=== PATIENT | male | born 1955 | race American Indian/Alaskan Native ===

== ENCOUNTER 2018-07-09 01:29 | Emergency (ER) | payer OTHER ==
--- NOTE | 2018-07-09 07:40 | Emergency Department Report ---
ED Recheck HPI - General Chief Complaint: High BP Stated Complaint: HIGH BP Time Seen by Provider: 07/09/18 07:15 Source: patient Mode of arrival: Ambulatory Limitations: No Limitations - History of Present Illness Initial Comments: This is a 62-year-old male nontoxic, well nourished in appearance, no acute signs of distress presents to the ED for medication refill for HTN. Patient stated he took his blood pressure and it was elevated at home. Patient stated that he does not remember his medication and he has been taking. Patient stated that he has not been taking his medications for 2 years. Patient denies any chest pain, headache, stiff neck, nausea, vomiting, numbness, tingling, bowel pain. Patient denies any symptoms. Denies any allergies significant past medical history besides hypertension. MD Complaint: medication refill request Returns Today for: request for prescription Symptoms Since Prior Visit: no new symptoms Associated Symptoms: none. denies: fever, chills, chest pain, shortness of breath, rash, malaise, nasuea, abdominal pain - Related Data Previous Rx's Medication Instructions Recorded Last Taken Type amLODIPine [Norvasc] 10 mg PO DAILY #30 tab 07/09/18 Unknown Rx Allergies Allergy/AdvReac Type Severity Reaction Status Date / Time No Known Allergies Allergy Unverified 07/09/18 01:35 ED Review of Systems ROS: Stated complaint: HIGH BP Other details as noted in HPI Constitutional: denies: chills, fever Eyes: denies: eye pain, eye discharge, vision change ENT: denies: ear pain, throat pain Respiratory: denies: cough, shortness of breath, wheezing Cardiovascular: denies: chest pain, palpitations Endocrine: no symptoms reported Gastrointestinal: denies: abdominal pain, nausea, diarrhea Genitourinary: denies: urgency, dysuria Musculoskeletal: denies: back pain, joint swelling, arthralgia Skin: denies: rash, lesions Neurological: denies: headache, weakness, paresthesias Psychiatric: denies: anxiety, depression Hematological/Lymphatic: denies: easy bleeding, easy bruising ED Past Medical Hx - Past Medical History Previous Medical History?: Yes Hx Hypertension: Yes (noncompliant x2 yrs) - Surgical History Past Surgical History?: No - Social History Smoking Status: Never Smoker Substance Use Type: None - Medications Home Medications: Home Medications Medication Instructions Recorded Confirmed Last Taken Type amLODIPine [Norvasc] 10 mg PO DAILY #30 tab 07/09/18 Unknown Rx ED Physical Exam - General Limitations: No Limitations General appearance: alert, in no apparent distress - Head Head exam: Present: atraumatic, normocephalic - Neck Neck exam: Present: normal inspection, full ROM - Respiratory Respiratory exam: Present: normal lung sounds bilaterally. Absent: respiratory distress, wheezes, rales, rhonchi, stridor, chest wall tenderness, accessory muscle use, decreased breath sounds, prolonged expiratory - Cardiovascular Cardiovascular Exam: Present: regular rate, normal rhythm, normal heart sounds. Absent: systolic murmur, diastolic murmur, rubs, gallop - Extremities Exam Extremities exam: Present: normal inspection, full ROM - Back Exam Back exam: Present: normal inspection, full ROM - Neurological Exam Neurological exam: Present: alert, oriented X3 - Psychiatric Psychiatric exam: Present: normal affect, normal mood - Skin Skin exam: Present: warm, dry, intact, normal color. Absent: rash ED Course Vital Signs 07/09/18 01:35 Temperature 97.8 F Pulse Rate 100 H Respiratory 18 Rate Blood Pressure 179/84 O2 Sat by Pulse 100 Oximetry - Reevaluation(s) Reevaluation #1: 07/09/18 07:41 Patient is speaking in full sentences with no signs of distress noted. ED Recheck MDM - Medical Decision Making This is a 62-year-old male that presents with medication refill. Patient is stable and was examined by me. Patient is currently asymptomatic. I will treat patient with Norvasc at discharge. I did educate patient to keep a daily diary of blood pressure in the presents of primary care doctor also educated patient on a low-sodium diet as well as increase exercise. Patient was referred to Follow-up with a primary care doctor in 3-5 days or if symptoms worsen and continue return to emergency room as soon as possible. At time of discharge, the patient does not seem toxic or ill in appearance. No acute signs of distress noted. Patient agrees to discharge treatment plan of care. No further questions noted by the patient. Critical care attestation.: If time is entered above; I have spent that time in minutes in the direct care of this critically ill patient, excluding procedure time. ED Disposition Clinical Impression: Hypertension Qualifiers: Hypertension type: unspecified Qualified Code(s): I10 - Essential (primary) hypertension Disposition: DC-01 TO HOME OR SELFCARE Is pt being admited?: No Does the pt Need Aspirin: No Condition: Stable Instructions: Hypertension (ED) Additional Instructions: Follow-up with a primary care doctor in 3-5 days or if symptoms worsen and continue return to emergency room as soon as possible. Keep a daily diary of your blood pressure and presented to primary care doctor. Prescriptions: amLODIPine [Norvasc] 10 mg PO DAILY #30 tab Referrals: JOHNSON ADAMSMILLCREEK MD VALERIE [Primary Care Provider] - 3-5 Days PRIMARY CAREMD [Referring] - 3-5 Days DAYTON RAI MD [Staff Physician] - 3-5 Days [facility] [Outside] - 3-5 Days Forms: Work/School Release Form(ED)
[2018-07-09 07:54] VITALS: BP 204/96
== END 2018-07-09 07:52 | disposition home or self-care (01) ==
LOC: ED 01:29
DX: I10 Essential (primary) hypertension (principal); Z76.0 Encounter for issue of repeat prescription

== ENCOUNTER 2019-08-12 16:35 | Emergency (ER) | payer MEDICARE, OTHER ==
[2019-08-12 16:42] VITALS: BP 204/111
[2019-08-12 17:40] LABS: Hematocrit 46.7 % (35.5-45.6); Hemoglobin 15.5 gm/dl (11.8-15.2); Mean Corpuscular HGB Conc 33 % (32-34); Mean Corpuscular Volume 93 fl (84-94); Platelet Count 227 K/mm3 (140-440); Red Blood Count 5.05 M/mm3 (3.65-5.03); Red Cell Distribution Width 15.8 % (13.2-15.2)
[2019-08-12 18:03] LABS: Alanine Aminotransferase 95 units/L (7-56); BUN/Creatinine Ratio 13; Blood Urea Nitrogen 9 mg/dL (9-20); Calcium 9.2 mg/dL (8.4-10.2); Hemolysis Index 7
--- NOTE | 2019-08-12 18:06 | XRay Report ---
LEFT RIBS 3 VIEWS INDICATION / CLINICAL INFORMATION: Left rib pain after fall. COMPARISON: None available. FINDINGS: RIBS: No acute, displaced fracture or other acute abnormality. LUNGS: No acute findings. No pneumothorax. Signer Name: Bayron Gale MD Signed: 08/12/2019 6:02 PM Workstation Name: [id number]
--- NOTE | 2019-08-12 18:20 | Emergency Department Report ---
ED General Adult HPI - General Chief complaint: Fall Stated complaint: FALL INJURY/PAIN Time Seen by Provider: 08/12/19 17:44 Source: patient Mode of arrival: Ambulatory Limitations: No Limitations - History of Present Illness Initial comments: This is a 63-year-old male with a history of hypertension controlled with medication who presents the ED today complaining of left-sided lower rib pain x2 days. Patient states 2 days ago he was playing with his girlfriend when he accidentally f tripped and hit the side of his ribs on the heater. Patient sta nury he had pain since then. Patient denies chest pain, difficulty breathing. - Related Data Previous Rx's Medication Instructions Recorded Last Taken Type Naproxen [Naprosyn] 500 mg PO BID #30 tablet 08/12/19 Unknown Rx amLODIPine 10 mg PO DAILY #40 tab 08/12/19 Unknown Rx Allergies Allergy/AdvReac Type Severity Reaction Status Date / Time No Known Allergies Allergy Verified 08/12/19 16:37 ED Review of Systems ROS: Stated complaint: FALL INJURY/PAIN Other details as noted in HPI Comment: All other systems reviewed and negative ED Past Medical Hx - Past Medical History Hx Hypertension: Yes (noncompliant x2 yrs) - Social History Smoking Status: Never Smoker Substance Use Type: Alcohol - Medications Home Medications: Home Medications Medication Instructions Recorded Confirmed Last Taken Type Naproxen [Naprosyn] 500 mg PO BID #30 tablet 08/12/19 Unknown Rx amLODIPine 10 mg PO DAILY #40 tab 08/12/19 Unknown Rx ED Physical Exam - General Limitations: No Limitations General appearance: alert, in no apparent distress - Head Head exam: Present: atraumatic, normocephalic - Eye Eye exam: Present: normal appearance - ENT ENT exam: Present: mucous membranes moist - Neck Neck exam: Present: normal inspection, full ROM. Absent: tenderness - Respiratory Respiratory exam: Present: normal lung sounds bilaterally, other (no brusing or eccymosis noted). Absent: respiratory distress, wheezes, chest wall tenderness, accessory muscle use - Cardiovascular Cardiovascular Exam: Present: regular rate, normal rhythm. Absent: systolic murmur, diastolic murmur, rubs, gallop - GI/Abdominal GI/Abdominal exam: Present: soft, normal bowel sounds - Rectal Rectal exam: Present: deferred - Extremities Exam Extremities exam: Present: normal inspection - Back Exam Back exam: Present: normal inspection - Neurological Exam Neurological exam: Present: alert, oriented X3 - Psychiatric Psychiatric exam: Present: normal affect, normal mood - Skin Skin exam: Present: warm, dry, intact, normal color. Absent: rash ED Course Vital Signs 08/12/19 16:41 Temperature 97.9 F Pulse Rate 77 Respiratory 16 Rate Blood Pressure 204/111 O2 Sat by Pulse 99 Oximetry ED Medical Decision Making - Lab Data Result diagrams: 08/12/19 17:09 08/12/19 17:09 Laboratory Last Values WBC 3.5 K/mm3 (4.5-11.0) L 08/12/19 17:09 RBC 5.05 M/mm3 (3.65-5.03) H 08/12/19 17:09 Hgb 15.5 gm/dl (11.8-15.2) H 08/12/19 17:09 Hct 46.7 % (35.5-45.6) H 08/12/19 17:09 MCV 93 fl (84-94) 08/12/19 17:09 MCH 31 pg (28-32) 08/12/19 17:09 MCHC 33 % (32-34) 08/12/19 17:09 RDW 15.8 % (13.2-15.2) H 08/12/19 17:09 Plt Count 227 K/mm3 (140-440) 08/12/19 17:09 [place] % (Auto) Psychiatric Cns 08/12/19 17:09 Sodium 140 mmol/L (137-145) 08/12/19 17:09 Potassium 3.8 mmol/L (3.6-5.0) 08/12/19 17:09 Chloride 103.0 mmol/L (98-107) 08/12/19 17:09 Carbon Dioxide 21 mmol/L (22-30) L 08/12/19 17:09 Anion Gap 20 mmol/L 08/12/19 17:09 BUN 9 mg/dL (9-20) 08/12/19 17:09 Creatinine 0.7 mg/dL (0.8-1.5) L 08/12/19 17:09 Estimated GFR > 60 ml/min 08/12/19 17:09 BUN/Creatinine Ratio 13 % 08/12/19 17:09 Glucose 100 mg/dL (75-100) 08/12/19 17:09 Calcium 9.2 mg/dL (8.4-10.2) 08/12/19 17:09 Total Bilirubin 0.90 mg/dL (0.1-1.2) 08/12/19 17:09 AST 157 units/L (5-40) H 08/12/19 17:09 ALT 95 units/L (7-56) H 08/12/19 17:09 Alkaline Phosphatase 122 units/L (35-129) 08/12/19 17:09 Troponin T < 0.010 ng/mL (0.00-0.029) 08/12/19 17:09 Total Protein 8.4 g/dL (6.3-8.2) H 08/12/19 17:09 Albumin 4.0 g/dL (3.9-5) 08/12/19 17:09 Albumin/Globulin Ratio 0.9 % 08/12/19 17:09 - Radiology Data Radiology results: report reviewed, image reviewed XRay Report Signed Patient: TERESA ORANTES MR#: [id number] : 1955 Acct:[id number] Age/Sex: 63 / M ADM Date: 08/12/19 Loc: ED Attending Dr: Ordering Physician: MARIAM DOW Date of Service: 08/12/19 Procedure(s): XR ribs UNI w PA chest 3+V LT Accession Number(s): [id number] cc: MARIAM DOW Fluoro Time In Minutes: LEFT RIBS 3 VIEWS INDICATION / CLINICAL INFORMATION: Left rib pain after fall. COMPARISON: None available. FINDINGS: RIBS: No acute, displaced fracture or other acute abnormality. LUNGS: No acute findings. No pneumothorax. Signer Name: Bayron Gale MD Signed: 08/12/2019 6:02 PM Workstation Name: [id number] Transcribed By: PETER Dictated By: Bayron Gale MD Electronically Authenticated By: Bayron Gale MD Signed Date/Time: 08/12/19 180 - Medical Decision Making This 63-year-old male who presented status post fall complaining of left chest wall pain most likely secondary to contusion. X-ray shows no acute findings, no fractures. Discussed findings with the patient. All labs are within normal limits. Discussed to take medication for pain. Blood pressure medications refilled. Discussed with patient to follow-up with primary care physician. Critical care attestation.: If time is entered above; I have spent that time in minutes in the direct care of this critically ill patient, excluding procedure time. ED Disposition Clinical Impression: Fall, Contusion of left chest wall Disposition: DC-01 TO HOME OR SELFCARE Is pt being admited?: No Does the pt Need Aspirin: No Condition: Stable Instructions: Thoracic Pain (ED), Contusion in Adults (ED) Additional Instructions: Make sure to follow up with the primary care physician as discussed. Take all your medications as you've been prescribed. If you have any worsening symptoms or develop new symptoms please return to ED immediately. Prescriptions: amLODIPine 10 mg PO DAILY #40 tab Naproxen [Naprosyn] 500 mg PO BID #30 tablet Referrals[facility] [Outside] - 3-5 Days [facility] [Outside] - 3-5 Days Forms: Accompanied Note, Work/School Release Form(ED) Time of Disposition: 18:22
[2019-08-12 18:38] LABS: RBC Morphology Normal; Total Cells Counted 100
== END 2019-08-12 18:50 | disposition home or self-care (01) ==
LOC: ED 16:35
DX: S20.211A Contusion of right front wall of thorax, initial encounter (principal); I10 Essential (primary) hypertension; Z79.899 Other long term (current) drug therapy; W18.30XA Fall on same level, unspecified, initial encounter; Y93.89 Activity, other specified; Y92.89 Other specified places as the place of occurrence of the external cause; Y99.8 Other external cause status
CPT/HCPCS: 36415; 80053; 84484; 85007; 85025; 93005

== ENCOUNTER 2021-06-28 04:46 | Emergency (ER) | payer MEDICARE ==
[2021-06-28 05:10] VITALS: BP 119/62
--- NOTE | 2021-06-28 06:21 | Emergency Department Report ---
ED Fall HPI - General Chief Complaint: Fall Stated Complaint: GROUND LEVEL FALL/DIZZINESS Time Seen by Provider: 06/28/21 06:17 Source: patient Mode of arrival: Ambulatory Limitations: No Limitations - History of Present Illness Initial Comments: CC: "I fell. I thought my blood pressure was up." HPI: This is a 65 yo male with hx of HTN who fell at home. Ground level fall. No injured area. No head trauma. No LOC. He has been compliant with his blood pressure medications. He arrived via EMS. MD Complaint: fall -: Gradual Fall From: standing When Fall Occurred: 1-3 hours [employer] Fall Witnessed: no Place Fall Occurred: home Loss of Consciousness: none Prolonged Down Time?: no Symptoms Prior to Fall: none Severity scale (0 -10): 0 Context: tripped/slipped, alcohol use Associated Symptoms: denies - Related Data Previous Rx's Medication Instructions Recorded Last Taken Type Naproxen [Naprosyn] 500 mg PO BID #30 tablet 08/12/19 Unknown Rx amLODIPine 10 mg PO DAILY #40 tab 08/12/19 Unknown Rx Allergies Allergy/AdvReac Type Severity Reaction Status Date / Time pollen extracts Allergy Unknown Verified 06/28/21 05:13 ED Review of Systems ROS: Stated complaint: GROUND LEVEL FALL/DIZZINESS Other details as noted in HPI Comment: All other systems reviewed and negative Constitutional: denies: chills, fever, malaise Respiratory: denies: cough, shortness of breath Cardiovascular: denies: chest pain Gastrointestinal: denies: abdominal pain, nausea, vomiting Neurological: denies: headache ED Past Medical Hx - Past Medical History Previous Medical History?: Yes Hx Hypertension: Yes - Surgical History Past Surgical History?: No - Social History Smoking Status: Never Smoker Substance Use Type: Alcohol - Medications Home Medications: Home Medications Medication Instructions Recorded Confirmed Last Taken Type Naproxen [Naprosyn] 500 mg PO BID #30 tablet 08/12/19 Unknown Rx amLODIPine 10 mg PO DAILY #40 tab 08/12/19 Unknown Rx ED Physical Exam - General Limitations: No Limitations General appearance: alert, in no apparent distress, other (GCS 15, normal steady gait, appears well) - Head Head exam: Present: atraumatic, normocephalic - Eye Eye exam: Present: normal appearance - ENT ENT exam: Present: mucous membranes moist - Neck Neck exam: Present: normal inspection, full ROM - Respiratory Respiratory exam: Present: normal lung sounds bilaterally. Absent: respiratory distress, wheezes, rales, rhonchi - Cardiovascular Cardiovascular Exam: Present: regular rate, normal rhythm, normal heart sounds. Absent: systolic murmur, diastolic murmur, rubs, gallop - GI/Abdominal GI/Abdominal exam: Present: soft, normal bowel sounds. Absent: distended, tenderness, guarding, rebound - Rectal Rectal exam: Present: deferred - Extremities Exam Extremities exam: Present: normal inspection - Back Exam Back exam: Present: normal inspection - Neurological Exam Neurological exam: Present: alert, oriented X3 - Psychiatric Psychiatric exam: Present: normal affect, normal mood - Skin Skin exam: Present: warm, dry, intact, normal color. Absent: rash ED Course Vital Signs 06/28/21 05:08 Temperature 97.5 F L Pulse Rate 63 Respiratory 18 Rate Blood Pressure 119/62 O2 Sat by Pulse 95 Oximetry ED Medical Decision Making - Medical Decision Making 1. GLF without injury. Patient appears well and healthy. 2. HTN: normotensive 3. Reported alcohol use. Patient is clinically sober. He is insightful with brisk steady gait. Critical care attestation.: If time is entered above; I have spent that time in minutes in the direct care of this critically ill patient, excluding procedure time. ED Disposition Clinical Impression: Hypertension, Fall from ground level Disposition: 01 HOME / SELF CARE / HOMELESS Is pt being admited?: No Does the pt Need Aspirin: No Condition: Stable Instructions: Hypertension (ED), Managing Your Hypertension Referrals: JANE FARRELL MD [Staff Physician] - 3-5 Days
== END 2021-06-28 06:38 | disposition home or self-care (01) ==
LOC: ED 04:46
DX: I10 Essential (primary) hypertension (principal); W01.0XXA Fall on same level from slipping, tripping and stumbling without subsequent striking against object, initial encounter; Y93.89 Activity, other specified; Y92.89 Other specified places as the place of occurrence of the external cause; Y99.8 Other external cause status; F10.20 Alcohol dependence, uncomplicated
CPT/HCPCS: 99282